=== PATIENT | female | born 1970 | race Caucasian/White ===

== ENCOUNTER 2016-08-07 09:26 | Outpatient (CLI) | payer BC | END 2016-08-07 17:58 | disposition home or self-care (01) | LOC: SMA 09:26 | PROVIDERS: ATTEND Family Medicine | DX: Z12.31 Encounter for screening mammogram for malignant neoplasm of breast (principal) | CPT/HCPCS: 77067; G0202 ==

== ENCOUNTER 2017-08-25 10:37 | Outpatient (CLI) | payer BC | END 2017-08-25 20:13 | disposition home or self-care (01) | LOC: SMA 10:37 | PROVIDERS: ATTEND Family Medicine | DX: Z12.31 Encounter for screening mammogram for malignant neoplasm of breast (principal) | CPT/HCPCS: 77067 ==